=== PATIENT | male | born 1950 | race Caucasian/White ===

== ENCOUNTER 2017-02-21 08:28 | Inpatient (IN) | payer OTHER ==
[~2017-02-21] VITALS: Ht 167.6 cm; Wt 105.4 kg
[2017-02-21 14:03] VITALS: BP 152/71
[2017-02-21] MEDS ORDERED: TYLENOL REGULA325 MG PO (15:46)
[2017-02-21] MEDS ORDERED: CATAPRES0.1 MG PO (15:47)
[2017-02-21] MEDS ORDERED: DECADRON4 MG PO (15:48)
[2017-02-21] MEDS ORDERED: DULCOLAX10 MG PR (15:49)
[2017-02-21] MEDS ORDERED: BENADRYL50 MG PO (15:49)
[2017-02-21] MEDS ORDERED: HYDROCHLOROTHIA25 MG PO (15:50)
[2017-02-21] MEDS ORDERED: KEPPRA500 MG PO (15:52)
[2017-02-21] MEDS ORDERED: NOVOLOG PE100 UNITS/ SC (15:52)
[2017-02-21] MEDS ORDERED: PERCOCET 5/31 TABLET PO (15:53)
[2017-02-21] MEDS ORDERED: FLOMAX0.4 MG PO (15:54)
[2017-02-21] MEDS ORDERED: MULTIPLE VITAM1 EAC1 PO (15:55)
[2017-02-21 22:47] LABS: POINT-OF-CARE METER ID UU13113720
[2017-02-22 04:48] LABS: MCH 29.5 PG (29.0-34.0); MCHC 34.2 G/DL (30.0-36.0); MCV 86.3 FL (86-99); MEAN PLAT.VOLUME 9.9 uM^3 (9.0-12.4); PLATELET COUNT 223 K/uL (156-360); RBC DIS.WIDTH-CV 13.3 % (11.8-14.6); RBC DIS.WIDTH-SD 41.6 % (39-53); RED BLOOD COUNT 4.98 M/uL (4.00-5.50); WHITE BLOOD COUNT 15.3 K/uL (4.1-10.2)
[2017-02-22 04:50] VITALS: BP 147/76
[2017-02-22 05:09] LABS: CHLORIDE 98 mEq/L (99-109); POTASSIUM 4.1 mEq/L (3.7-5.4); SODIUM 138 mEq/L (136-147)
[2017-02-22 05:12] LABS: GLUCOSE 115 mg/dL (70-99)
[2017-02-22 05:13] LABS: ANION GAP 12 MEQ/L (2-14)
[2017-02-22 05:14] LABS: TOTAL BILIRUBIN 0.6 mg/dL (0.0-1.0)
[2017-02-22 05:15] LABS: ALKALINE PHOSPHATASE 44 IU/L (3-129); GFR ESTIMATE (CALCULATED) > 59 mL/min/
[2017-02-22 05:16] LABS: UREA NITROGEN (BUN) 31 mg/dL (9-23)
[2017-02-22 06:50] LABS: POINT-OF-CARE METER ID UU13113712
[2017-02-22 12:00] LABS: POINT-OF-CARE METER ID UU13113720; POINT-OF-CARE USER ID ENVGAF
[2017-02-22 12:29] VITALS: BP 145/83
[2017-02-22 15:17] VITALS: BP 135/78
[2017-02-22 16:33] LABS: POINT-OF-CARE METER ID UU13113720; POINT-OF-CARE USER ID ENVGAF
[2017-02-22 21:21] LABS: POINT-OF-CARE METER ID UU13113712
[2017-02-23 00:21] VITALS: BP 137/74
[2017-02-23 05:35] VITALS: BP 135/75
[2017-02-23 06:47] LABS: POINT-OF-CARE METER ID UU13113720
[2017-02-23 11:08] LABS: POINT-OF-CARE METER ID UU13113712
[2017-02-23 12:53] VITALS: BP 107/56
[2017-02-23 15:30] VITALS: BP 138/68
[2017-02-23 16:49] LABS: POINT-OF-CARE METER ID UU13113712
[2017-02-23 21:32] LABS: POINT-OF-CARE METER ID UU13113712
[2017-02-23 23:37] VITALS: BP 162/80
[2017-02-24 06:22] VITALS: BP 140/89
[2017-02-24 07:16] LABS: POINT-OF-CARE METER ID UU13113712
[2017-02-24 11:38] LABS: POINT-OF-CARE METER ID UU13113712
[2017-02-24 15:43] VITALS: BP 147/76
[2017-02-24 16:24] LABS: POINT-OF-CARE METER ID UU13113720
[2017-02-24 20:54] LABS: POINT-OF-CARE METER ID UU13113712
[2017-02-25 06:13] VITALS: BP 116/69
[2017-02-25 07:21] LABS: POINT-OF-CARE METER ID UU13113720
[2017-02-25 11:50] LABS: POINT-OF-CARE METER ID UU13113720
[2017-02-25 12:00] VITALS: BP 130/76
[2017-02-25 15:13] VITALS: BP 131/68
[2017-02-25 16:14] LABS: POINT-OF-CARE METER ID UU13113720
[2017-02-25 17:02] VITALS: BP 134/81
[2017-02-25 21:09] LABS: POINT-OF-CARE METER ID UU13113712
[2017-02-25 23:02] VITALS: BP 138/70
[2017-02-26 05:21] VITALS: BP 141/76
[2017-02-26 07:01] LABS: POINT-OF-CARE METER ID UU13113720
[2017-02-26 11:38] LABS: POINT-OF-CARE METER ID UU13113720
[2017-02-26 15:42] VITALS: BP 124/75
[2017-02-26 16:10] LABS: POINT-OF-CARE METER ID UU13113720
[2017-02-26 20:14] VITALS: BP 128/65
[2017-02-26 21:12] LABS: POINT-OF-CARE METER ID UU13113712
[2017-02-26] MEDS ORDERED: KEPPRA500 MG PO (23:52)
[2017-02-26] MEDS ORDERED: DECADRON4 MG PO (23:52)
[2017-02-26] MEDS ORDERED: PERCOCET 5/31 TABLET PO (23:52)
[2017-02-26] MEDS ORDERED: SENNA PLUS TAB1 EACH PO (23:52)
[2017-02-26] MEDS ORDERED: BENADRYL50 MG PO (23:52)
[2017-02-26] MEDS ORDERED: CATAPRES0.1 MG PO (23:52)
[2017-02-27 04:52] VITALS: BP 140/66
[2017-02-27 06:50] LABS: POINT-OF-CARE METER ID UU13113712
[2017-02-27 12:01] LABS: POINT-OF-CARE METER ID UU13113720
== END 2017-02-27 14:15 | disposition home health service (06) | DRG 949 ==
LOC: 3WEST 08:28 → ENPENDDIS 02-27 → 3WEST 02-27 14:15
PROVIDERS: Physical Medicine & Rehabilitation Pain Medicine
PROC: F07M0ZZ Range of Motion and Joint Mobility Treatment of Musculoskeletal System - Whole Body (ICD-10-PCS; principal; 2017-02-21)
DX: Z48.3 Aftercare following surgery for neoplasm (principal); R26.2 Difficulty in walking, not elsewhere classified; R53.1 Weakness; C71.3 Malignant neoplasm of parietal lobe; G93.6 Cerebral edema; G89.18 Other acute postprocedural pain; R51 Headache; G31.84 Mild cognitive impairment of uncertain or unknown etiology; I10 Essential (primary) hypertension; Z66 Do not resuscitate; Z51.5 Encounter for palliative care; K21.9 Gastro-esophageal reflux disease without esophagitis; D68.51 Activated protein C resistance; N40.0 Benign prostatic hyperplasia without lower urinary tract symptoms; M19.90 Unspecified osteoarthritis, unspecified site; G47.33 Obstructive sleep apnea (adult) (pediatric); F32.9 Major depressive disorder, single episode, unspecified; F41.9 Anxiety disorder, unspecified; R73.9 Hyperglycemia, unspecified; D72.829 Elevated white blood cell count, unspecified; T38.0X5A Adverse effect of glucocorticoids and synthetic analogues, initial encounter; G47.00 Insomnia, unspecified; M54.12 Radiculopathy, cervical region; Z98.890 Other specified postprocedural states
CPT/HCPCS: 70553; 80053; 82948; 85027; 92523 GN; 97110 GO; 97530 GP; 97532 GN; J1815; J8540